=== PATIENT | female | born 2000 | race African-American/Black ===

== ENCOUNTER 2020-10-08 11:10 | Emergency (ER) | payer SELFPAY ==
[~2020-10-08] VITALS: Ht 182.9 cm; Wt 69.0 kg
[2020-10-08] MEDS ORDERED: IBUPROFEN 600MG TABLET PO ONE (11:30)
[2020-10-08] MEDS ORDERED: AMOXICILLIN 500 MG CAPSULE PO ONE (11:30)
[2020-10-08] MEDS ORDERED: IBUP-2029 MT (11:32)
[2020-10-08] MEDS ORDERED: AMOX-494 MT (11:33)
[2020-10-08 11:59] VITALS: BP 128/70
== END 2020-10-08 11:59 | disposition home or self-care (01) ==
LOC: ER 11:10
DX: K12.2 Cellulitis and abscess of mouth (principal)
CPT/HCPCS: 99283